=== PATIENT | female | born 1990 | race Two or more races ===

== ENCOUNTER 2020-07-20 15:36 | Outpatient (REF) | payer OTHER, SELFPAY | END 2020-07-20 15:37 | disposition home or self-care (01) | LOC: HO.LAB 15:36 | PROVIDERS: PCP Internal Medicine; Visit Provider Advanced Practice Midwife | DX: R30.0 Dysuria (principal); B00.9 Herpesviral infection, unspecified | CPT/HCPCS: 87086; 99212 ==

== ENCOUNTER → 2020-07-25 14:56 | Outpatient (BNVA) | payer OTHER, SELFPAY | PROVIDERS: PCP Internal Medicine; Visit Provider Advanced Practice Midwife | DX: Z30.46 Encounter for surveillance of implantable subdermal contraceptive (principal) | CPT/HCPCS: 11981; 11982; 11983 ==

== ENCOUNTER 2021-06-25 11:35 | Outpatient (REF) | payer OTHER, SELFPAY ==
[2021-06-25 15:58] LABS: CT PCR NOT DETECTED (Not Detect.); NG PCR NOT DETECTED (Not Detect.)
[2021-06-26 09:59] LABS: BV Int Neg Control Negative (Negative); BV Int Pos Control Positive (Positive)
== END 2021-06-25 11:36 | disposition home or self-care (01) ==
LOC: HO.LAB 11:35
PROVIDERS: PCP Internal Medicine; Visit Provider Advanced Practice Midwife
DX: Z11.3 Encounter for screening for infections with a predominantly sexual mode of transmission (principal); N89.8 Other specified noninflammatory disorders of vagina; R10.2 Pelvic and perineal pain
CPT/HCPCS: 87480; 87491; 87510; 87591; 87660

== ENCOUNTER 2021-11-20 09:06 | Outpatient (REF) | payer OTHER, SELFPAY ==
[2021-11-20 16:23] LABS: CT PCR NOT DETECTED (Not Detect.); NG PCR NOT DETECTED (Not Detect.)
[2021-11-21 13:11] LABS: BV Int Neg Control Negative (Negative); BV Int Pos Control Positive (Positive)
[2021-11-23 09:57] LABS: HPV mRNA E6/E7 rflx Not Detected (Not Detected)
== END 2021-11-20 09:07 | disposition home or self-care (01) ==
LOC: HO.LAB 09:06
PROVIDERS: PCP Nurse Practitioner Family; Visit Provider Advanced Practice Midwife
DX: Z01.411 Encounter for gynecological examination (general) (routine) with abnormal findings (principal); Z11.51 Encounter for screening for human papillomavirus (HPV); R10.2 Pelvic and perineal pain; N89.8 Other specified noninflammatory disorders of vagina; A60.00 Herpesviral infection of urogenital system, unspecified; Z20.2 Contact with and (suspected) exposure to infections with a predominantly sexual mode of transmission
CPT/HCPCS: 87480; 87491; 87510; 87591; 87624; 87660; 88142

== ENCOUNTER 2022-05-09 09:36 | Outpatient (REF) | payer OTHER, SELFPAY ==
[2022-05-09 15:32] LABS: CT PCR NOT DETECTED (Not Detect.); NG PCR NOT DETECTED (Not Detect.)
[2022-05-10 15:15] LABS: BV Int Neg Control Negative (Negative); BV Int Pos Control Positive (Positive)
== END 2022-05-09 09:37 | disposition home or self-care (01) ==
LOC: HO.LNP 09:36
PROVIDERS: Visit Provider Advanced Practice Midwife
DX: Z11.3 Encounter for screening for infections with a predominantly sexual mode of transmission (principal); N89.8 Other specified noninflammatory disorders of vagina; Z20.2 Contact with and (suspected) exposure to infections with a predominantly sexual mode of transmission
CPT/HCPCS: 87480; 87491; 87510; 87591; 87660; 99212

== ENCOUNTER 2023-04-16 08:15 | Outpatient (REF) | payer OTHER, SELFPAY | END 2023-04-16 08:16 | disposition home or self-care (01) | LOC: HO.LNP 08:15 | PROVIDERS: Visit Provider Advanced Practice Midwife | DX: N89.8 Other specified noninflammatory disorders of vagina (principal); R10.2 Pelvic and perineal pain; R35.0 Frequency of micturition; E28.2 Polycystic ovarian syndrome | CPT/HCPCS: 99212 ==

== ENCOUNTER 2023-04-16 08:15 | Outpatient (AMB) | payer OTHER, SELFPAY ==
--- NOTE | 2023-04-16 08:21 | A.OFFVIS_ITS ---
Intake Vital Signs 04/16/23 08:26 Height 5 ft 5 in Weight 268 lb 15.423 oz BMI 44.8 BP 118/76 Intake Visit Reasons: ? yeast/BV Intake Note: The patient agreed to use of a manager medical during this encounter. Scribed for HUAN Pavon by Mona Gonzalez, manager medical, on 04/16/2023 at 8:32 am EST. Emergency Department Clinician Required: No Information Interpreted: non-clinical & clinical Washtub Worker: Washtub Worker Present (Pia Donovan AMANDA) Accompanied by: Self / Same As Patient Allergies naproxen Allergy (Unknown, Verified 04/16/23 08:26) stomach upset Mayonnase Allergy (Unknown, Uncoded 04/16/23 08:26) Unknown Is last menstrual period known: No HPI HPI Comments History of Present Illness Details She reports green discharge, frequency of urination and low abdominal pain. Denies vaginal itching, odor, or pain while urinating. Currently sexually active with partner of 7 years. Reports hx of herpes-no lesions presently, PCOS, hypothyroid, and IBS; is seeing her PCP in May. Uses Nexplanon for BC and has occasional spotting. [facility] Medical History (Updated 04/16/23 @ 08:51 by Mona Gonzalez) Genital herpes Hypothyroidism IBS (irritable bowel syndrome) Morbid obesity Polycystic ovary syndrome Surgical History H/O colonoscopy No history of previous surgery Social History Alcohol intake: never Patient Tobacco Use Status: Never used Tobacco Sexual orientation: Straight/Heterosexual Gender identity: Female Physical Exam Vital Signs: Last Vital Signs BP 118/76 04/16/23 08:26 BMI result Body Mass Index 44.8 Const General: cooperative, healthy appearing, comfortable, no acute distress, well developed, alert and awake GI Inspection: Yes obesity Other: General: Yes bladder normal to palpation External Female Exam: normal external appearance and normal appearance of the urethra Speculum Exam - Vagina: normal appearance of the vagina, normal palpation and normal vaginal discharge Speculum Exam - Cervix: normal appearance of the cervix and normal palpation Bimanual exam- vagina & uterus: normal bimanual exam, normal palpation, bladder normal to palpation and normal palpation Bimanual Exam- Adnexa, other: normal adnexae and no masses Assessment & Plan Assessment & Plan (1) Vaginal discharge: Code(s): N89.8 - Other specified noninflammatory disorders of vagina Plan: Discussed: Hydrate well with water. Relase labs: PCOS BV testing and GC/CT panel done today. Await results and treat accordingly. All of her questions and concerns were addressed to the best of my ability and shared decision making. She is agreeable to plan of care. (2) Pelvic pain in female: Code(s): R10.2 - Pelvic and perineal pain Plan: Pelvic US ordered; follow up in person or tele visit for results. (3) Frequency of urination: Code(s): R35.0 - Frequency of micturition Plan: UA done today. (4) Polycystic ovary syndrome: Code(s): E28.2 - Polycystic ovarian syndrome Plan: Encouraged when she has labs work up with PCP, send results to office. Orders: Orders US pelvic and transvaginal Today R10.2 - Pelvic and perineal pain Bacterial Vaginosis Panel Today R10.2 - Pelvic and perineal pain CT NG by PCR Today R10.2 - Pelvic and perineal pain Coding Level of Care Code Est Pt Level 3 (15253) Diagnoses Vaginal discharge N89.8 Pelvic pain in female R10.2 Frequency of urination R35.0 Polycystic ovary syndrome E28.2
[2023-04-16 08:26] VITALS: BP 118/76; BMI 44.8
== END 2023-04-16 08:54 | disposition home or self-care (01) ==
LOC: HO.HWSW 08:15
PROVIDERS: Visit Provider Advanced Practice Midwife
DX: N89.8 Other specified noninflammatory disorders of vagina (principal); R10.2 Pelvic and perineal pain; R35.0 Frequency of micturition; E28.2 Polycystic ovarian syndrome
CPT/HCPCS: 99213

== ENCOUNTER 2023-04-16 08:37 | Outpatient (REF) | payer OTHER, SELFPAY ==
[2023-04-17 09:32] LABS: CT PCR NOT DETECTED (Not Detect.); NG PCR NOT DETECTED (Not Detect.)
[2023-04-17 12:06] LABS: BV Int Neg Control Negative (Negative); BV Int Pos Control Positive (Positive)
== END 2023-04-16 08:38 | disposition home or self-care (01) ==
LOC: HO.LAB 08:37
PROVIDERS: Visit Provider Advanced Practice Midwife
DX: R10.2 Pelvic and perineal pain (principal)
CPT/HCPCS: 0353U; 87480; 87510; 87660

== ENCOUNTER 2023-06-24 13:55 | Outpatient (REF) | payer OTHER, SELFPAY ==
--- NOTE | ~2023-06-24 | US_ITS ---
EXAMINATION: US PELVIS CLINICAL INFORMATION: Pelvic pain. COMPARISON: None available. TECHNIQUE: Ultrasound of the pelvis is performed using both transabdominal and transvaginal transducers along with Doppler. Transvaginal imaging is performed due to inadequate visualization transabdominally. FINDINGS: Uterus: The uterus is retroverted and measures 6.3 x 3.7 x 4.2 cm. The double wall endometrial thickness is 3 mm. The uterus is smooth in contour and has normal myometrial echogenicity. No visible fibroid. Adnexa: Both ovaries are visualized. There is normal color flow to the adnexa. There is no ovarian torsion. There is no pelvic ascites or fluid collection. Right ovary measures 3.3 x 1.9 x 2.2 cm. The right ovary appears normal. Left ovary measures 2.9 x 2.0 x 2.4 cm. Thinly septated cyst measures 1.9 cm. US/US pelvic and transvaginal IMPRESSION: New thinly septated left ovarian cyst measuring 1.9 cm compared to 11/01/2019. Best practice recommendation: Recommend surgical evaluation. Reference: Radiology 2010 Apr;256(3):943-54
== END 2023-06-24 13:56 | disposition home or self-care (01) ==
LOC: HO.US 13:55
PROVIDERS: Visit Provider Advanced Practice Midwife
DX: R10.2 Pelvic and perineal pain (principal)
CPT/HCPCS: 76830; 76856

== ENCOUNTER 2023-10-02 11:43 | Outpatient (AMB) | payer OTHER, SELFPAY ==
--- NOTE | 2023-10-02 11:43 | A.OFFVIS_ITS ---
Intake Intake Visit Reasons: Ultra sound follow up Lacquer Spray Booth Operator Required: No Information Interpreted: non-clinical & clinical Cotton Grower: Cotton Grower Present Allergies naproxen Allergy (Unknown, Verified 10/02/23 11:44) stomach upset Mayonnase Allergy (Unknown, Uncoded 10/02/23 11:44) Unknown Is last menstrual period known: Yes HPI HPI Comments History of Present Illness Details [facility] visit 11:54-12:04. Phone call due to Covid 19 Pandemic. I spent 10 minutes speaking with the patient on the phone plus an additional 5 minutes reviewing the chart and 5 minutes updating the medical record for a total of 20 minutes. Patient presents via phone to discuss: Ultrasound findings. History of PCOS and IBS. She reports she often has lower pelvic pain it is hard to tell if it is her GI system acting up. Currently Nexplanon user device was inserted 07/25/2020. She thought it was good for 5 years. She does have an intimate partner. She reports random bleeding. [facility] Medical History Hypothyroidism Polycystic ovary syndrome Morbid obesity Genital herpes IBS (irritable bowel syndrome) Surgical History H/O colonoscopy No history of previous surgery Social History Alcohol intake: never Patient Tobacco Use Status: Never used Tobacco Sexual orientation: Straight/Heterosexual Gender identity: Female Review of Systems Const All systems reviewed & are unremarkable except as noted in HPI and below Endo Reports no additional complaints Physical Exam Const General: cooperative, healthy appearing and no acute distress Psych Appearance: well kempt Attitude: cooperative Thought process: Normal thought process present Assessment & Plan Assessment & Plan (1) Encounter to discuss test results: Code(s): Z71.2 - Person consulting for explanation of examination or test findings (2) Ovarian cyst: Code(s): N83.209 - Unspecified ovarian cyst, unspecified side Qualifiers: Laterality: unspecified laterality Qualified Code(s): N83.209 - Unspecified ovarian cyst, unspecified side Plan Discussed: Counseled regarding findings of: Ovarian cyst, which is often benign, and most resolve on their own overtime. Plan to repeat in 8 weeks. Follow up in person for test results. If any increase in pelvic pain unilaterally left side to notify the office for sooner evaluation. Return to the office to sign consent for prior authorization to order a new Nexplanon. Advised to do a home test if positive notify the office as soon as possible. Advised to use condoms consistently until her Nexplanon new device has been placed in a 7 day backup method is utilized after insertion. All of her questions and concerns were addressed to the best of my ability and shared decision making. She is agreeable to the plan of care. This note is constructed using voice recognition software. While every effort has been made to ensure accuracy, groundman errors may have been included. Orders: Orders US pelvic and transvaginal 2 Months N83.209 - Unspecified ovarian cyst, unspecified side Telehealth Telehealth Location of provider rendering services: practice address Location of patient: address on file Patient Identification confirmed using: Name, : Yes Telehealth method: video Patient verbally consented to treatment: Yes Patient verbally consented to billing insurance company: Yes Patient informed of any privacy concerns related to visit: Yes Coding Level of Care Code Tele Est Pt Level 3 (30383) Diagnoses Encounter to discuss test results Z71.2 Cyst of ovary, unspecified laterality N83.209 Laterality: unspecified laterality
== END 2023-10-02 14:11 | disposition home or self-care (01) ==
LOC: HO.HWS 11:43
PROVIDERS: Visit Provider Advanced Practice Midwife
DX: Z71.2 Person consulting for explanation of examination or test findings (principal); N83.209 Unspecified ovarian cyst, unspecified side
CPT/HCPCS: 99213

== ENCOUNTER → 2023-10-02 11:43 | Outpatient (BNVA) | payer OTHER, SELFPAY | PROVIDERS: Visit Provider Advanced Practice Midwife ==

== ENCOUNTER 2023-12-01 11:06 | Outpatient (REF) | payer OTHER, SELFPAY ==
--- NOTE | ~2023-12-01 | US_ITS ---
EXAMINATION: US PELVIS COMPLETE CLINICAL INFORMATION: Additional Notes/Special Instructions follow up left ovarian cyst : COMPARISON: Pelvic ultrasound 06/24/2023 TECHNIQUE: Transabdominal and transvaginal imaging was performed. Technically limited exam. FINDINGS: The uterus is of normal size and echogenicity measuring 7.4 x 4.1 x 4.1 cm. Uterus is dynamic in position. A regular homogeneous endometrium is identified measuring 0.3 cm. Trace fluid in the endocervical canal. Nabothian cysts in the cervix. Both ovaries are of echogenicity. The right measures 2.7 x 2.0 x 1.9 cm for a volume of 5.4 mL. The left measures 10.7 x 2.6 x 2.7 cm for a volume of 13.6 mL with a 2.2 cm left ovarian cyst, suboptimally imaged and the previously seen septations were not identified with certainty unclear if they have truly resolved given the limited technique. Previously seen multiseptated left ovarian cyst measured 1.9 cm. There is trace simple physiologic volume pelvic free fluid. US/US pelvic and transvaginal IMPRESSION: 1. A 2.2 cm left ovarian cyst, suboptimally imaged and the previously seen septations were not identified with certainty though unclear if they have truly resolved given the limited technique, overall only minimally increased in size. Given the previously seen septations recommend continued gynecologic surgical management. 2. Trace fluid in the endocervical canal.
== END 2023-12-01 11:07 | disposition home or self-care (01) ==
LOC: HO.US 11:06
PROVIDERS: Visit Provider Advanced Practice Midwife
DX: N83.209 Unspecified ovarian cyst, unspecified side (principal)
CPT/HCPCS: 76830; 76856

== ENCOUNTER 2023-12-24 09:58 | Outpatient (AMB) | payer OTHER, SELFPAY ==
[2023-12-24 10:27] VITALS: BP 120/74; BMI 44.9
--- NOTE | 2023-12-24 10:27 | A.OFFVIS_ITS ---
Vital Signs 12/24/23 10:27 Height 5 ft 5 in Weight 270 lb BMI 44.9 BP 120/74 Intake Visit Reasons: Ultra sound follow up Manager Domestic Required: No [employer] Dynamics Consultant: [employer] Consultant Present Allergies naproxen Allergy (Unknown, Verified 12/24/23 10:28) stomach upset Mayonnase Allergy (Unknown, Uncoded 12/24/23 10:28) Unknown Is last menstrual period known: Yes Last menstrual period: 12/06/23 Post menopausal: No HPI Comments Details: Patient is here today for ultrasound results and a follow up on a complex ovarian cyst. She is due for Nexplanon exchange in February. [facility] Medical History Hypothyroidism Polycystic ovary syndrome Morbid obesity Genital herpes IBS (irritable bowel syndrome) Surgical History H/O colonoscopy No history of previous surgery Social History Alcohol intake: never Patient Tobacco Use Status: Never used Tobacco Sexual orientation: Straight/Heterosexual Gender identity: Female Female Reproductive History Menstrual Duration of menses: 3-5 days Date of last menstrual period: 12/06/23 control method: implanted Date of last pap smear: 11/21/21 (negative) Review of Systems Const All systems reviewed & are unremarkable except as noted in HPI and below Reports as per HPI Eyes Reports no additional complaints ENT Reports no additional complaints Card Reports no additional complaints Resp Reports no additional complaints GI Reports as per HPI and Reports no additional complaints Reports as per HPI Musc Reports no additional complaints Skin/Breast Reports as per HPI Neuro Reports no additional complaints Psych Reports no additional complaints Endo Reports no additional complaints Avel/Lymph Reports no additional complaints Aller/Immun Reports no additional complaints Physical Exam Vital Signs: Last Vital Signs BP 120/74 12/24/23 10:27 BMI result Body Mass Index 44.9 Const General: cooperative, healthy appearing, no acute distress, well developed and alert Orientation/consciousness: patient oriented x3 HEENT Head: Yes normal to inspection Eyes General: appearance normal, both eyes and all related structures Neck Neck: Yes normal visual inspection Thyroid: Thyroid normal Chest Chest palpation & inspection: normal inspection of the chest and other (no puckering, dimpling, peau de orange, retraction, discharge, masses) Breast/axilla inspection: normal inspection of the breasts Breast/axilla palpation: normal palpation of the breasts Resp Effort & Inspection: normal respiratory effort GI Inspection: Yes normal to inspection Palpation (GI): Soft to palpation Rectal Exam - Female: deferred General: Yes bladder normal to palpation External Female Exam: normal external appearance and normal appearance of the urethra Speculum Exam - Vagina: normal appearance of the vagina, normal palpation and normal vaginal discharge Speculum Exam - Cervix: normal appearance of the cervix and normal palpation Bimanual exam- vagina & uterus: normal bimanual exam, normal palpation, uterine size normal, bladder normal to palpation, normal palpation and non-tender Bimanual Exam- Adnexa, other: no masses Skin General skin exam: no rashes or lesions noted Rashes: no rashes Neuro General: patient oriented x3 Cognition (Neuro): normal cognition Extrem General: Yes normal to inspection Psych Appearance: well kempt Attitude: cooperative Thought process: Normal thought process present Results Reviewed Results Reviewed: [address] [address] Ultrasound Report Signed Patient: Robyn Wilcox MR#: [id number] : 1990 Acct:[id number] Age/Sex: 33 / F ADM Date: 12/01/23 Loc: . Attending Dr: Laura Quintanilla CNM Ordering Physician: Laura Quintanilla CNM Date of Service: 12/01/23 Procedure(s): US pelvic and transvaginal Accession Number(s): [id number] cc: Laura Quintanilla CNM~ EXAMINATION: US PELVIS COMPLETE CLINICAL INFORMATION: Additional Notes/Special Instructions follow up left ovarian cyst : COMPARISON: Pelvic ultrasound 06/24/2023 TECHNIQUE: Transabdominal and transvaginal imaging was performed. Technically limited exam. FINDINGS: The uterus is of normal size and echogenicity measuring 7.4 x 4.1 x 4.1 cm. Uterus is dynamic in position. A regular homogeneous endometrium is identified measuring 0.3 cm. Trace fluid in the endocervical canal. Nabothian cysts in the cervix. Both ovaries are of echogenicity. The right measures 2.7 x 2.0 x 1.9 cm for a volume of 5.4 mL. The left measures 10.7 x 2.6 x 2.7 cm for a volume of 13.6 mL with a 2.2 cm left ovarian cyst, suboptimally imaged and the previously seen septations were not identified with certainty unclear if they have truly resolved given the limited technique. Previously seen multiseptated left ovarian cyst measured 1.9 cm. There is trace simple physiologic volume pelvic free fluid. US/US pelvic and transvaginal IMPRESSION: 1. A 2.2 cm left ovarian cyst, suboptimally imaged and the previously seen septations were not identified with certainty though unclear if they have truly resolved given the limited technique, overall only minimally increased in size. Given the previously seen septations recommend continued gynecologic surgical management. 2. Trace fluid in the endocervical canal. Dictated By: Mirlande Monet MD Signed By: <Electronically signed by Mirlande Monet MD in OV> 12/04/23 1718 DD/ 1134 TD/TT: Statistical Methods Teacher: Assessment & Plan Assessment & Plan (1) Complex ovarian cyst: Code(s): N83.299 - Other ovarian cyst, unspecified side Category: Medical Plan Discussed: Ultrasound findings. Counseled regarding findings of: Complex ovarian cyst, which is often benign, and most resolve on their own overtime. Some develop into premalignant or malignant tumors. Further monitoring and evaluation is recommended with US, possible CT, or MRI study. If persists, or is indicated (Ca-125, Carbohydrate Antigen 19-9, & Carcinoembryonic Antigen) labs will be ordered and referral to [facility] or general gynecology for MD care if indicated for possible surgical consult. Follow up in person for test results. Prior authorization form signed today for [employer]. Call sooner if any pelvic pain or concerns for sooner evaluation. All of her questions and concerns were addressed to the best of my ability and shared decision making. She is agreeable to the plan of care. This note is constructed using voice recognition software. While every effort has been made to ensure accuracy, special trackwork blacksmith errors may have been included. Orders: Orders US pelvic and transvaginal 2 Months N83.299 - Other ovarian cyst, unspecified side Coding Level of Care Code Est Pt Level 3 (99995) Diagnoses Complex ovarian cyst N83.299
== END 2023-12-24 11:05 | disposition home or self-care (01) ==
PROVIDERS: Visit Provider Advanced Practice Midwife
DX: N83.299 Other ovarian cyst, unspecified side (principal)
CPT/HCPCS: 99213

== ENCOUNTER → 2023-12-24 09:58 | Outpatient (BNVA) | payer OTHER, SELFPAY | PROVIDERS: Visit Provider Advanced Practice Midwife | DX: N83.299 Other ovarian cyst, unspecified side (principal) | CPT/HCPCS: 99212 ==

== ENCOUNTER 2023-12-30 11:00 | Outpatient (RCR) | payer OTHER, SELFPAY | END 2024-02-11 10:09 | disposition home or self-care (01) | LOC: HO.PT 11:00 | PROVIDERS: Visit Provider Internal Medicine Rheumatology | DX: M17.0 Bilateral primary osteoarthritis of knee (principal) | CPT/HCPCS: 97110; 97161; 97162 ==

== ENCOUNTER 2024-04-26 11:14 | Outpatient (REF) | payer OTHER, SELFPAY ==
--- NOTE | ~2024-04-26 | US_ITS ---
EXAMINATION: US PELVIS CLINICAL INFORMATION: Complex ovarian cyst COMPARISON: Ultrasound from 12/01/2023 and 06/24/2023 TECHNIQUE: Ultrasound of the pelvis is performed using both transabdominal and transvaginal transducers along with Doppler. Transvaginal imaging is performed due to inadequate visualization transabdominally. FINDINGS: Uterus: The uterus is retroverted and measures 9.9 x 3.0 x 3.9 cm. Questionable arcuate uterus configuration. The double wall endometrial thickness is 3 mm. The uterus is smooth in contour and has normal myometrial echogenicity. No visible fibroid. Adnexa: Both ovaries are visualized. There is normal color flow to the adnexa. There is no ovarian torsion. There is no pelvic ascites or fluid collection. Right ovary measures 3.4 x 2.0 x 2.3 cm. Right ovary appears sonographically normal Left ovary measures 4.0 x 2.2 x 2.5 cm. Left ovarian cyst is difficult to visualize on the transvaginal imaging. The cyst measures approximately 2.5 x 1.8 x 2.5 cm on transabdominal imaging which is stable in size. Overall complexity is difficult to determine on the transabdominal images. Grossly no significant change compared to the prior exams. US/US pelvic and transvaginal IMPRESSION: 1. Left ovarian cyst is difficult to visualize on the transvaginal imaging. The cyst is stable in size compared to the prior exams. Overall complexity is difficult to determine on the transabdominal images. Further evaluation with MRI may be useful for better definition 2. Uterus and right ovary are normal. Electronically signed by: Medardo Grove MD 04/28/2024 10:38 AM EDT
== END 2024-04-26 11:15 | disposition home or self-care (01) ==
LOC: HO.US 11:14
PROVIDERS: Visit Provider Advanced Practice Midwife
DX: N83.299 Other ovarian cyst, unspecified side (principal)
CPT/HCPCS: 76830; 76856

== ENCOUNTER 2024-05-24 08:46 | Outpatient (AMB) | payer OTHER, SELFPAY ==
--- NOTE | 2024-05-24 08:46 | A.OFFVIS_ITS ---
Intake Visit Reasons: US follow up ok per [facility] Intake Note: cell #[phone] Licensing And Registration Director: Licensing And Registration Director Present Allergies naproxen Allergy (Unknown, Verified 05/24/24 08:46) stomach upset Mayonnase Allergy (Unknown, Uncoded 12/24/23 10:28) Unknown Is last menstrual period known: Yes Last menstrual period: 05/21/24 HPI Comments Details: [place] visit -09:02-09:10. I spent 8 minutes speaking with the patient on the phone plus an additional 5 minutes reviewing the chart and 5 minutes updating the medical record for a total of 18minutes. Failed video audible, visit converted to land line. Patient presents via phone to discuss: Ultrasound findings, history of complex ovarian cyst. Patient admits to occasional left-sided pelvic pain. Has also questions about replacing her Nexplanon and is waiting for device to be available. [facility] Medical History Hypothyroidism Polycystic ovary syndrome Morbid obesity Genital herpes IBS (irritable bowel syndrome) Surgical History H/O colonoscopy No history of previous surgery Social History Alcohol intake: never Patient Tobacco Use Status: Never used Tobacco Sexual orientation: Straight/Heterosexual Gender identity: Female Female Reproductive History Menstrual Date of last menstrual period: 05/21/24 Review of Systems Const All systems reviewed & are unremarkable except as noted in HPI and below Endo Reports no additional complaints Physical Exam Const General: cooperative, healthy appearing and no acute distress Psych Appearance: well kempt Attitude: cooperative Thought process: Normal thought process present Telehealth Telehealth Telehealth Platform: [employer] Location of provider rendering services: practice address Location of patient: address on file Patient Identification confirmed using: Name, : Yes Telehealth method: video Patient verbally consented to treatment: Yes Patient verbally consented to billing insurance company: Yes Patient informed of any privacy concerns related to visit: Yes Results Reviewed Results Reviewed: [address] [address] Ultrasound Report Signed Patient: Robyn Wilcox MR#: [id number] : 1990 Acct:[id number] Age/Sex: 33 / F ADM Date: 04/26/24 Loc: HO.US Attending Dr: Laura Quintanilla CNM Ordering Physician: Laura Quintanilla CNM Date of Service: 04/26/24 Procedure(s): US pelvic and transvaginal Accession Number(s): [id number] cc: Laura Quintanilla CNM~ EXAMINATION: US PELVIS CLINICAL INFORMATION: Complex ovarian cyst COMPARISON: Ultrasound from 12/01/2023 and 06/24/2023 TECHNIQUE: Ultrasound of the pelvis is performed using both transabdominal and transvaginal transducers along with Doppler. Transvaginal imaging is performed due to inadequate visualization transabdominally. FINDINGS: Uterus: The uterus is retroverted and measures 9.9 x 3.0 x 3.9 cm. Questionable arcuate uterus configuration. The double wall endometrial thickness is 3 mm. The uterus is smooth in contour and has normal myometrial echogenicity. No visible fibroid. Adnexa: Both ovaries are visualized. There is normal color flow to the adnexa. There is no ovarian torsion. There is no pelvic ascites or fluid collection. Right ovary measures 3.4 x 2.0 x 2.3 cm. Right ovary appears sonographically normal Left ovary measures 4.0 x 2.2 x 2.5 cm. Left ovarian cyst is difficult to visualize on the transvaginal imaging. The cyst measures approximately 2.5 x 1.8 x 2.5 cm on transabdominal imaging which is stable in size. Overall complexity is difficult to determine on the transabdominal images. Grossly no significant change compared to the prior exams. US/US pelvic and transvaginal IMPRESSION: 1. Left ovarian cyst is difficult to visualize on the transvaginal imaging. The cyst is stable in size compared to the prior exams. Overall complexity is difficult to determine on the transabdominal images. Further evaluation with MRI may be useful for better definition 2. Uterus and right ovary are normal. Electronically signed by: Medardo Grove MD 04/28/2024 10:38 AM EDT Dictated By: Medardo Grove MD Signed By: <Electronically signed by Medardo Grove MD in OV> 04/28/24 1038 DD/ 1126 TD/TT: 04/26/24 1155 Curtain Hemmer Automatic: Assessment & Plan Assessment & Plan (1) Complex ovarian cyst: Code(s): N83.299 - Other ovarian cyst, unspecified side Category: Medical (2) Encounter to discuss test results: Code(s): Z71.2 - Person consulting for explanation of examination or test findings Plan Discussed: Ultrasound findings-limitedORDER #: [id number] US/US pelvic and transvaginal IMPRESSION: 1. Left ovarian cyst is difficult to visualize on the transvaginal imaging. The cyst is stable in size compared to the prior exams. Overall complexity is difficult to determine on the transabdominal images. Further evaluation with MRI may be useful for better definition 2. Uterus and right ovary are normal. Electronically signed by: Medardo Grove MD 04/28/2024 10:38 AM EDT She denies any contraindications to an MRI. Advised to call if there is any increase in pelvic pain. If severe pain to report to the emergency room. Use of a heating pad or [id number] ibuprofen or Tylenol with food reviewed. Plan MRI and follow up office visit in person. Staff to confirm status of Nexplanon device and arrival to pharmacy. Advised to use backup method until devices replaced. Obtain a home test now. All of her questions and concerns were addressed to the best of my ability and shared decision making. She is agreeable to the plan of care. This note is constructed using voice recognition software. While every effort has been made to ensure accuracy, banquet lead errors may have been included. Coding Level of Care Code Tele Est Pt Level 3 (10106) Diagnoses Complex ovarian cyst N83.299 Encounter to discuss test results Z71.2
== END 2024-05-24 09:45 | disposition home or self-care (01) ==
LOC: HO.HWS 08:46
PROVIDERS: Visit Provider Advanced Practice Midwife
DX: N83.299 Other ovarian cyst, unspecified side (principal); Z71.2 Person consulting for explanation of examination or test findings
CPT/HCPCS: 99213

== ENCOUNTER → 2024-05-24 08:46 | Outpatient (BNVA) | payer OTHER, SELFPAY | PROVIDERS: Visit Provider Advanced Practice Midwife ==

== ENCOUNTER → 2024-09-30 14:59 | Outpatient (BNV) | payer OTHER, SELFPAY | PROVIDERS: Visit Provider Radiology Diagnostic Radiology | DX: N83.202 Unspecified ovarian cyst, left side (principal) | CPT/HCPCS: 72197 ==

== ENCOUNTER 2024-09-30 15:01 | Outpatient (REF) | payer OTHER, SELFPAY ==
--- NOTE | ~2024-09-30 | MR_ITS ---
EXAMINATION: MR PELVIS WITHOUT AND WITH CONTRAST CLINICAL INFORMATION: Ovarian cyst, unspecified site. COMPARISON: Correlated to pelvic ultrasound dated April 26, 2024 suggesting a left ovarian cyst. TECHNIQUE: Multiplanar, multisequence MRI pelvis without and following gadolinium based IV contrast. Total of 10 cc given without reported immediate complications. FINDINGS: Uterus measures 8 x 4 x 4 cm. No focal enhancing lesion. Junctional zone measures 1 mm. Cervix demonstrates no enhancing lesion. Right ovary: 4 x 3 x 3 cm. Scattered follicles. No focal enhancing lesion. Left ovary: 4 x 3.3 cm. There is a 2.7 cm thin capsulated nonenhancing fluid signal characteristic lesion. No free fluid in the cul-de-sac. No gross lymphadenopathy in the pelvis. No bone marrow signal abnormality or enhancing lesions in the included axial skeleton and bony pelvis. MR/MR pelvis wo/w con IMPRESSION: 2.7 cm simple cyst, left ovary. Electronically signed by: Rubin Taylor MD 10/04/2024 09:37 AM SILVIO
--- OUTSIDE RECORDS SUMMARY | 2024-09-30 15:04 | XMS_ITS | Continuity of Care Document ---
Author Organization [facility] Address [address] [place] [address]- Care Team Providers Care Medical Services Coordinator Name Role Phone Thor Pablo MD, Dari Primary Care Physician [place] [facility] [place] 08/08/24 - 09/07/[address] [address]- Encounter Type: Triage Allergies, Adverse Reactions, Alerts Substance Criticality Severity Reaction Reaction Severity Status amoxicillin Active Naprosyn Active Medications escitalopram 20 mg oral tablet 1 tablet = 20 mg, By Mouth, Daily, # 90 tablet, 0 Refills, Maintenance, 05/18/24 3:33:00 PM EDT, Tablet, Partial fill upon patient request if the prescription is for a schedule II opioid drug. Start Date: 05/18/24 Status: Ordered Quantity: 90.0 Unit: tablet Repeat number: 1 Nexplanon 68 mg subcutaneous implant 1 each = 68 mg, Subcutaneous Infusion, Once, 0 Refills, Maintenance, 05/23/24 2:23:00 PM EDT, Partial fill upon patient request if the prescription is for a schedule II opioid drug. Start Date: 05/23/24 Status: Ordered Repeat number: 1 omeprazole 20 mg oral enteric coated capsule See Instructions, TAKE 1 CAPSULE BY MOUTH 1/2 TO 1 HOUR BEFORE BREAKFAST ON EMPTY STOMACH, # 90 capsule, 0 Refills, [id number], 162, cm, 05/08/21 15:57:00 EDT, Height Start Date: 01/30/22 Status: Ordered Quantity: 90.0 Unit: capsule Repeat number: 1 Reguloid 400 mg oral capsule 2 capsule, By Mouth, 2 times a day, PRN NEEDED FOR CONSTIPATION, # 120 capsule, 11 Refills, Maintenance, 08/08/24 2:10:00 PM EST, [id number], 164, cm, 05/18/24 15:02:00 EDT, Height Start Date: 08/08/24 Status: Ordered Quantity: 120.0 Unit: capsule Repeat number: 1 Ventolin HFA 108 mcg/inh inhalation aerosol with adapter 2 puffs, Inhalation, Every 4 hours, PRN for wheezing, # 18 Gm, 0 Refills, Maintenance, 05/18/24 3:33:00 PM EDT, Aerosol, Partial fill upon patient request if the prescription is for a schedule II opioid drug. Start Date: 05/18/24 Status: Ordered Quantity: 18.0 Unit: g Repeat number: 1 Problem List Condition Confirmation Course Effective Dates Status Health St atus Informant Chronic abdominal pain Confirmed Active GERD (gastroesophageal reflux disease) Confirmed Active Genital herpes Confirmed Active H/O Lulú-Schlatter disease Confirmed Active Healthy adult Confirmed Active Knee pain Confirmed Active Morbid obesity with BMI of 40.0-44.9, adult Confirmed Active Serrated polyp of colon Confirmed 04/17/17 Active Severe obesity Confirmed Active Social anxiety disorder Confirmed Active Social History Social History Type Response Smoking Status Former smoker entered on: 06/29/17 Sex Sex Representation Female (finding) Patient Care team information Care Team Personnel Name: Dari Miller MD Position: [facility] Resident Member Role: PCP Address: [address] [place] [address] Telecom: Name: Brandi Ochoa RN Position: [facility] ED RN W/OE and Tasks Member Role: Primary Care Nurse Name: Joseluis ROLLE, Yamilet Emery Position: [facility] ED RN W/OE and Tasks Member Role: Primary Care Nurse Name: Tony ROLLE, Vic Sanchez Position: [facility] RN Member Role: Primary Care Nurse Name: Damaris Segura RN Position: [facility] [place] Nurse Member Role: Primary Care Nurse Care Team Related Persons Name: BARBARA DEL ROSARIO Name: MICHOACANO DEL ROSARIO Insurance Providers Guarantor name: AYAKA LION [employer] Plan Information #: 1 Payer: [facility] Member Number: NA Policy Number: NA Group Number: NA
--- OUTSIDE RECORDS SUMMARY | 2024-09-30 15:04 | XMS_ITS | Continuity of Care Document ---
Author Organization [facility] Address [address] [place] [address]- Care Team Providers Care Furnace Installer Name Role Phone Thor Pablo MD, Dari Primary Care Physician ( [phone] [place] [facility] [place] 08/02/24 - 09/01/[address] [address]- Encounter Type: Triage Allergies, Adverse Reactions, Alerts [...] EMPTY STOMACH, # 90 capsule, 0 Refills, [facility] [id number], 162, cm, 05/08/21 15:57:00 EDT, Height Start Date: 01/30/22 Status: Ordered Quantity: 90.0 Unit: capsule Repeat number: 1 Reguloid 400 mg oral capsule 2 capsule, By Mouth, 2 times a day, PRN NEEDED FOR CONSTIPATION, # 120 capsule, 11 Refills, Maintenance, 08/08/24 2:10:00 PM EST, [id number], 164, cm, 05/18/24 15:02:00 EDT, Height Start [...] Team Personnel Name: Dari Miller MD Position: [facility] Resident Member Role: PCP Address: [address] [place] [address] Telecom: Name: Gabriela ROLLE, Brandi Alegria Position: [facility] ED RN W/OE and Tasks Member Role: Primary Care Nurse Name: Joseluis ROLLE, Yamilet Emery Position: [facility] ED RN W/OE and Tasks Member Role: Primary Care Nurse Name: Tony ROLLE, Vic Sanchez Position: [facility] RN Member Role: Primary Care Nurse Name: Damaris Segura RN Position: [facility] [place] Nurse Member Role: Primary Care Nurse Care Team Related Persons Name: BARBARA DEL ROSARIO Name: MICHOACANO DEL ROSARIO Insurance Providers Guarantor name: AYAKA LION [employer] Plan Information #: 1 Payer: [facility] Member Number: NA Policy Number: NA Group Number: NA
--- OUTSIDE RECORDS SUMMARY | 2024-09-30 15:04 | XMS_ITS | Encounter Summary ---
Author Organization [facility] Address [address] [place] [address] Care Team Providers Care Application Support Analyst Name Role Phone Unavailable Primary Care Provider Unavailabl e Encounter Details Date Type Department Care Team (Late st Contact Info) Description 02/03/2022 Dental Interim Note [facility] Dental [address] [place] [address] Ryanne Weiss DDS [address] [place] [address] Social History Tobacco Use Types Packs/Day Years Used Date Smoking Tobacco: Never Assessed Social Connections Answer Date Recorded Social Connections and Isolation 0 02/03/2022 Financial Resource Strain Answer Date R ecorded Financial Resource Strain 0 2021 Stress Answer Date Recorded Stress 0 02/03/2022 Physical Activity Answer Date Recorded Physical Activity 0 02/03/2022 Food Insecurity Answer Date Recorded Food 0 02/03/2022 Transportation Needs Answer Date Record ed Transportation 0 02/03/2022 Housing Stability Answer Date Recorded Housing 0 02/03/2022 Safety and Environment Answer Date Pasha rded Safety 0 02/03/2022 Utilities Answer Date Recorded Utilities 0 02/03/2022 Employment Answer Date Recorded Employment 0 02/03/2022 Comments Unknown Sex and Gender Information Value Date Recorded Sex Assigned at Not on file Legal Sex Female 9:01 AM PDT Gender Identity Not on file Sexual Orientation Not on file documented as of this encounter Plan of Treatment Upcoming Encounters Date Type Department Care Team (Late st Contact Info) Description 12/02/2024 11:00 AM EDT Office Visit [facility] Dental [address] [place] [address] Leeann Capps [address] [place] [address] documented as of this encounter Procedures Procedure Name Priority Date/Time Associated Diagnosis Comments 13 ROOT CANAL - WISDOM (NO BILLABLE) Routine 02/03/2022 12:00 AM EDT 4 MO COMPOSITE - WISDOM (NON BILLABLE) Routine 02/03/2022 12:00 AM EDT 14 O AMALGAM - WISDOM (NON BILLABLE) Routine 02/03/2022 12:00 AM EDT 12 MOD AMALGAM - WISDOM (NON BILLABLE) Routine 02/03/2022 12:00 AM EDT 5 DO AMALGAM - WISDOM (NON BILLABLE) Routine 02/03/2022 12:00 AM EDT 4 DO AMALGAM - WISDOM (NON BILLABLE) Routine 02/03/2022 12:00 AM EDT 3 MOL AMALGAM - WISDOM (NON BILLABLE) Routine 02/03/2022 12:00 AM EDT 2 O AMALGAM - WISDOM (NON BILLABLE) Routine 02/03/2022 12:00 AM EDT documented in this encounter Visit Diagnoses Not on filedocumented in this encounter
--- OUTSIDE RECORDS SUMMARY | 2024-09-30 15:04 | XMS_ITS | Continuity of Care Document ---
Author Organization [facility] ter Address [address] [place] [address]- Care Team Providers Care Director Compliance Name Role Phone Thor Pablo MD, Dari Primary Care Physician [place] [facility] [place] - 09/29/[address] [address] Attending Physician: Not on Staff, Attending MD Admitting Physician: Not on Staff, Admitting MD Referring Physician: Dari Miller MD Encounter Type: Pre-Outpt Allergies, Adverse Reactions, Alerts Substance Criticality Severity Reaction Reaction Severity Status amoxicillin Active Naprosyn Active Medications cetirizine 10 mg oral tablet 1 tablet = 10 mg, By Mouth, Daily, # 30 tablet, 0 Refills, Maintenance, 09/08/24 3:29:00 PM EST, Tablet, [id number], Partial fill upon patient request if the prescription is for a schedule II opioid drug., 164, cm, 05/18/24 15:02:00 EDT, Height Start Date: 09/08/24 Status: Ordered Quantity: 30.0 Unit: tablet Repeat number: 1 escitalopram 20 mg oral tablet 1 tablet [...] EMPTY STOMACH, # 90 capsule, 0 Refills, [facility], 162, cm, 05/08/21 15:57:00 EDT, Height Start Date: 01/30/22 Status: Ordered Quantity: 90.0 Unit: capsule Repeat number: 1 Reguloid 400 mg oral capsule 2 capsule, By Mouth, 2 times a day, PRN NEEDED FOR CONSTIPATION, # 120 capsule, 11 Refills, Maintenance, 08/08/24 2:10:00 PM EST, [facility], 164, cm, 05/18/24 15:02:00 EDT, Height Start [...] Team Personnel Name: Dari Miller MD Position: [facility] Resident Member Role: PCP Address: [address] [place] [address]- Telecom: Name: Brandi Ochoa RN Position: [facility] ED RN W/OE and Tasks Member Role: Primary Care Nurse Name: Joselius RN, Yamilet Emery Position: [facility] ED RN W/OE and Tasks Member Role: Primary Care Nurse Name: Tony RN, Vic Sanchez Position: [facility] ED RN W/OE and Tasks Member Role: Primary Care Nurse Name: Imelda ROLLE, Damaris Ambrocio Position: [facility] SN RN Member Role: Primary Care Nurse Care Team Related Persons Name: BARBARA DEL ROSARIO Name: MICHOACANO DEL ROSARIO Insurance Providers Guarantor name: AYAKA LION Health Plan Information #: 1 Payer: [facility] Member Number: [id number] Policy Number: NA Group Number: [id number] Health Plan Information #: 2 Payer: [facility] Member Number: [id number] Policy Number: NA Group Number: NA
--- OUTSIDE RECORDS SUMMARY | 2024-09-30 15:04 | XMS_ITS | Continuity of Care Document ---
Author Organization [facility] Address [address] [place] [address]- Care Team Providers Care Ict Analyst Name Role Phone Thor Pablo MD, Dari Primary Care Physician [place] [facility] [place] 08/30/24 - 09/29/[address] [address]- Encounter Type: Triage Allergies, Adverse Reactions, Alerts Substance Criticality Severity Reaction Reaction Severity Status amoxicillin Active Naprosyn Active Medications cetirizine 10 mg oral tablet 1 tablet = 10 mg, By Mouth, Daily, # 30 tablet, 0 Refills, Maintenance, 09/08/24 3:29:00 PM EST, Tablet, [id number], Partial fill upon patient request if the [...] # 90 capsule, 0 Refills, [facility], 162, cm, 05/08/21 15:57:00 EDT, Height Start Date: 01/30/22 Status: Ordered Quantity: 90.0 Unit: capsule Repeat number: 1 Reguloid 400 mg oral capsule 2 capsule, By Mouth, 2 times a day, PRN NEEDED FOR CONSTIPATION, # 120 capsule, 11 Refills, Maintenance, 08/08/24 2:10:00 PM EST, [facility], 164, cm, 05/18/24 15:02:00 EDT, Height Start [...] Team Personnel Name: Dari Miller MD Position: [facility] Resident Member Role: PCP Address: [address] [place] [address] Telecom: Name: Brandi Ochoa RN Position: [facility] ED RN W/OE and Tasks Member Role: Primary Care Nurse Name: Joseluis ROLLEYamilet Position: [facility] ED RN W/OE and Tasks Member Role: Primary Care Nurse Name: Tony RN, iVc Sanchze Position: [facility] ED RN W/OE and Tasks Member Role: Primary Care Nurse Name: Imelda ROLLE, Damaris Ambrocio Position: [facility] SN RN Member Role: Primary Care Nurse Care Team Related Persons Name: BARBARA DEL ROSARIO Name: MICHOACANO DEL ROSARIO Insurance Providers Guarantor name: [facility] Plan Information #: 1 Payer: [facility] Member Number: NA Policy Number: NA Group Number: NA
--- OUTSIDE RECORDS SUMMARY | 2024-09-30 15:04 | XMS_ITS | Clinical Summary ---
Author Organization [facility] Address [address] [place] [address] Care Team Providers Care Digital Account Executive Name Role Phone Unavailable Primary Care Provider Unavailabl e Source Comments PLEASE NOTE, if this patient is a minor, it may be UNLAWFUL to discuss sensitive information that is contained in these records (such as FAMILY PLANNING, MENTAL HEALTH or SUBSTANCE ABUSE) with the minor patient's parent or other person without the patient's specific authorization.[facility] Medications ibuprofen (ADVIL,MOTRIN) 600 mg tabletIndication s:Toothache Take 1 Tab by mouth 3 (three) times daily as needed for pain 30 Tab 01/27/2019 Active Active Problems No known active problems Social History Tobacco Use Types Packs/Day Years Used Date Smoking Tobacco: Never Assessed Social Connections Answer Date Recorded Connectedness 0 04/28/2024 Financial Resource Strain Answer Date R ecorded Financial Resource Strain 0 2021 Stress Answer Date Recorded Stress 0 02/03/2022 Physical Activity Answer Date Recorded Physical Activity 0 02/03/2022 Food Insecurity Answer Date Recorded Food 0 05/12/2024 Transportation Needs Answer Date Record ed Transportation 0 02/03/2022 Housing Stability Answer Date Recorded Housing 0 02/03/2022 Safety and Environment Answer Date Pasha rded Safety 0 02/03/2022 Utilities Answer Date Recorded Utilities 0 02/03/2022 Employment Answer Date Recorded Stress 0 04/28/2024 Comments Unknown Sex and Gender Information Value Date Recorded Sex Assigned at Not on file Legal Sex Female 9:01 AM PDT Gender Identity Not on file Sexual Orientation Not on file Last Filed Vital Signs Vital Sign Reading Time Taken Comments Blood Pressure 131/80 05/26/2024 12:59 PM EDT Pulse 98 05/26/2024 12:59 PM EDT Temperature - - Respiratory Rate - - Oxygen Saturation - - Inhaled Oxygen Concentration - - Weight - - Height - - Body Mass Index - - Plan of Treatment Upcoming Encounters Date Type Department Care Team (Late st Contact Info) Description 12/02/2024 11:00 AM EDT Office Visit [address] [address] Leeann Capps [address] [place] [address] Health Maintenance Due Date Last Done Comments Dental FMX/Pano 1989 Diabetes Screening 1989 HPV Screening 1989 Hepatitis C Screening 1989 Pap + HPV 1989 Tobacco Screening 1989 HIV Screening 2004 Relationship Safety Screening/Counseling 2004 Imm-DTaP/Tdap/Td (1 - Tdap) 2008 Imm-Hepatitis B (1 of 3 - 19+ 3-dose series) 8 Cervical Cancer Screening 2010 Pap Smear 2010 [id number]-13 ( season) 2024 Imm-Influenza (#1) 2024 Alcohol and Drug Screen 08/17/2024 Depression Annual Screen 08/17/2024 Dental BW 12/12/2024 12/11/2023 Dental Examination 12/12/2024 12/11/2023 Dental Perio Charting 12/12/2024 12/11/2023 Dental Prophy 12/12/2024 12/11/2023 Hypertension Screening (#1) 05/26/2025 Cervical Ablation/Cold-Knife Conization Discontinued Cervical Cryotherapy Discontinued Colposcopy Discontinued Endometrial Biopsy Discontinued Excision/Leep Discontinued HPV Genotyping Discontinued Vaginal Pap Discontinued Vulvoscopy Discontinued Procedures Procedure Name Priority Date/Time Associated Diagnosis Comments COMP PERIODONTAL EVALUATION - NEW/EST PATIENT Routine 12/11/2023 1:40 PM EDT Defective dental islam BITEWINGS - FOUR RADIOGRAPHIC IMAGES Routine 12/11/2023 1:40 PM EDT Defective dental islam PROPHYLAXIS - ADULT Routine 12/11/2023 1 :40 PM EDT Defective dental islam PERIODIC ORAL EVALUATION ESTABLISHED PATIENT Routine 12/11/2023 1:40 PM EDT Defective dental islam from Last 3 Months or Most Recently Relevant to Health Maintenance Insurance [facility]
--- OUTSIDE RECORDS SUMMARY | 2024-09-30 15:04 | XMS_ITS | Continuity of Care Document ---
Author Organization [facility] Address [address] [place] [address]- Care Team Providers Care Aml Analyst Name Role Phone Thor Pablo MD, Dari Primary Care Physician Encounter [facility] [place] 08/02/24 - 09/01/[address] [address]- Encounter Type: Triage Allergies, Adverse Reactions, Alerts [...] EMPTY STOMACH, # 90 capsule, 0 Refills, [facility] 15162, 162, cm, 05/08/21 15:57:00 EDT, Height Start Date: 01/30/22 Status: Ordered Quantity: 90.0 Unit: capsule Repeat number: 1 Reguloid 400 mg oral capsule 2 capsule, By Mouth, 2 times a day, PRN NEEDED FOR CONSTIPATION, # 120 capsule, 11 Refills, Maintenance, 08/08/24 2:10:00 PM EST, [id number], 164, cm, 05/18/24 15:02:00 EDT, Height Start [...] Team Personnel Name: Dari Miller MD Position: [facility] Resident Member Role: PCP Address: [address] [place] [address] Telecom: Name: Gabriela ROLLE, Brandi Alegria Position: [facility] ED RN W/OE and Tasks Member Role: Primary Care Nurse Name: Joseluis ROLLE, Yamilet Emery Position: [facility] ED RN W/OE and Tasks Member Role: Primary Care Nurse Name: Tony ROLLE, Vic Sanchez Position: [facility] RN Member Role: Primary Care Nurse Name: Damaris Segura RN Position: [facility] [place] Nurse Member Role: Primary Care Nurse Care Team Related Persons Name: BARBARA DEL ROSARIO Name: MICHOACANO DEL ROSARIO Insurance Providers Guarantor name: AYAKA LION [employer] Plan Information #: 1 Payer: [facility] Member Number: NA Policy Number: NA Group Number: NA
[2024-09-30] MEDS: gadobutroL 10 ML VIAL IVPUSH (16:20)
== END 2024-09-30 15:02 | disposition home or self-care (01) ==
LOC: HO.MRI 15:01
PROVIDERS: Visit Provider Advanced Practice Midwife
DX: N83.299 Other ovarian cyst, unspecified side (principal)
CPT/HCPCS: 72197; A9585

== ENCOUNTER 2024-11-10 14:30 | Outpatient (AMB) | payer OTHER, SELFPAY ==
--- NOTE | 2024-11-10 14:32 | A.OFFVIS_ITS ---
Vital Signs 11/10/24 14:38 Height 5 ft 5 in Weight 296 lb BMI 49.3 BP 112/78 Intake Visit Reasons: MRI F/U Allergies naproxen Allergy (Unknown, Verified 11/10/24 14:33) stomach upset Mayonnase Allergy (Unknown, Uncoded 12/24/23 10:28) Unknown Is last menstrual period known: Yes Last menstrual period: 11/03/24 HPI Comments Details: Patient is here today for a follow up MRI due to history of complex ovarian cyst. She reports intermittent discomfort on her left side. Last unprotected intimacy a month ago. She would like to have her Nexplanon exchanged completed today as it is overdue from last summer. [facility] Medical History (Updated 11/10/24 @ 15:40 by Laura Quintanilla CNM) History of sepsis Ovarian cyst Nexplanon in place Hypothyroidism Polycystic ovary syndrome Morbid obesity Genital herpes IBS (irritable bowel syndrome) Surgical History H/O colonoscopy No history of previous surgery Social History Alcohol intake: never Patient Tobacco Use Status: Never used Tobacco Sexual orientation: Straight/Heterosexual Gender identity: Female Female Reproductive History Menstrual Date of last menstrual period: 11/03/24 control method: implanted (Nexplanon) Physical Exam Vital Signs: Last Vital Signs BP 112/78 11/10/24 14:38 BMI result Body Mass Index 49.3 Extrem Other: Implant palpable left upper inner arm Office Procedures Contraception Insert/Removal Details Details: Nexplanon Removal and Reinsertion Procedure: She was counseled regarding the risks including and benefits for the Nexplanon device. She denies any risks to . Anticipatory guidance for the insertion procedure was reviewed. The urine test is negative. Risk of the procedure including pain, infection, bleeding, injury to the nerves, blood, vessels and surrounding tissue, migration of the device, unscheduled unpredictable bleeding patterns, weight gain, skin changes including acne. The consent form was signed and the patient request that the Nexplanon device be placed today. Procedure: The patient was placed in a supine position with her non dominant left hand resting under her head. The previous insertion site was located: 8-10cm from the medial epicondyle notch of the humerus, posterior to the sulcus, between the triceps and biceps muscle. The area of the previous implant was identified and the distal tip located. This area was cleansed with an alcohol prep and 1 ml of 1% Lidocaine on a 25 gauge needle and syringe was utilized for adequate anesthesia to the insertion site. After ascertaining adequate anesthesia, the area was prepped with Betadine solution. The skin over the distal tip was incised with a #11 blade scalpel and the capsule was located and entered freeing the implant from the canal. The implant was removed with a gentle tug using a mosquito clamp and removed intact. The Nexplanon device was removed from the manufacturers package and the implant was noted in the trocar canal. The trocar was inserted at a 30 degree angle and then lowered parallel to the skin for insertion into the subcutaneous space with counter traction. Direct pressure was applied to the insertion site for hemostasis, minimal bleeding was observed. Steri strips, Tegaderm covering, gauze pads, and Carolina wrap dressing were secured with paper tape. Nexplanon Post-insertion Care Instructions: You may experience some mild tenderness, swelling, and bruising from the area. If no allergies or contraindications, you may use a mild over the counter analgesic like Tylenol or Advil (follow the manufacturers recommendations on dosing and frequency of use). Call the office if any symptoms and including: fever (over 100.4), flu like symptoms, signs of infection-redness, pus drainage, pain (beyond usual healing), for any medical changes, suspected , heavy or prolonged vaginal bleeding Seek emergent care in the Emergency department for: sudden visual loss, shortness of breath, severe headache that is not consistent with your usual headaches, heaviness, sharp or severe chest pains, coughing up of blood, persistent pain in one of your extremities, weakness or numbness in an arm, leg or face, tongue or pharynx, trouble swallowing, difficult speaking, hives and trouble breathing, yellowing of skin, whites or eyes, especially with tiredness, loss of appetite, dark colored urine, light colored bowel movements, swelling or tenderness of the abdomen. The Nexplanon does not protect you from STI's, use of condoms is advised. Use a back up method of contraception for 7 days if the device is not placed within the first 5 days of your menses cycle to prevent an unintended . Keep the pressure dressing on and clean and dry for 24 hours, then remove it. You may take the steri strips and Tegaderm off in 5-7days, or sooner if peeling off on its own. Schedule a office post insertion check up in 4-6 weeks. The patient tolerated the procedure well and left the office in good condition. This note is constructed using voice recognition software. ?While every effort has been made to ensure accuracy, field human resources manager errors may have been included. ? 62936 - Insertion and Removal Office Meds Nexplanon 68 mg subdermal implant Performing Provider: Laura Quintanilla CNM Performing Location: [facility] Administered by: AMANDA Kenny on 11/10/24 16:01 Dose Route Admin Location Dispensed Lot Number Expiration Date [facility] [place] Mutuel Clerk 1 implant subdermal 1 implant [id number] 05/16/26 [id number] 3D Forms Results AMB Test Urine AMB Test Urine Negative Last Edit by AMANDA Kenny on 11/10/24 15:09 Results Reviewed Results Reviewed: Laboratory Last Values [facility]st Clinic Negative 11/10/24 15:08 [place] [address] Magnetic Resonance Report Signed Patient: Robyn Wilcox MR#: [id number] : 1990 Acct:[id number] Age/Sex: 34 / F ADM Date: 09/30/24 Loc: HO.MRI Attending Dr: Laura Quintanilla CNM Ordering Physician: Laura Quintanilla CNM Date of Service: 09/30/24 Procedure(s): MR pelvis wo/w con Accession Number(s): [id number] cc: Laura Quintanilla CNM~ EXAMINATION: MR PELVIS WITHOUT AND WITH CONTRAST CLINICAL INFORMATION: Ovarian cyst, unspecified site. COMPARISON: Correlated to pelvic ultrasound dated April 26, 2024 suggesting a left ovarian cyst. TECHNIQUE: Multiplanar, multisequence MRI pelvis without and following gadolinium based IV contrast. Total of 10 cc given without reported immediate complications. FINDINGS: Uterus measures 8 x 4 x 4 cm. No focal enhancing lesion. Junctional zone measures 1 mm. Cervix demonstrates no enhancing lesion. Right ovary: 4 x 3 x 3 cm. Scattered follicles. No focal enhancing lesion. Left ovary: 4 x 3.3 cm. There is a 2.7 cm thin capsulated nonenhancing fluid signal characteristic lesion. No free fluid in the cul-de-sac. No gross lymphadenopathy in the pelvis. No bone marrow signal abnormality or enhancing lesions in the included axial skeleton and bony pelvis. MR/MR pelvis wo/w con IMPRESSION: 2.7 cm simple cyst, left ovary. Electronically signed by: Rubin Taylor MD 10/04/2024 09:37 AM EST Dictated By: Rubin Tolentino MD Signed By: <Electronically signed by Rubin Oh MD in OV> 10/04/24 0937 DD/ 1520 TD/TT: 09/30/24 1600 Transmission Worker: Assessment & Plan Assessment & Plan (1) Ovarian cyst, left: Comment: 2.7 cm Code(s): N83.202 - Unspecified ovarian cyst, left side Category: Medical Plan: Discussed ovarian cyst findings with the MRI does not appear complex reports as a simple cyst 2.7 cm. Advised to call if there is any increase in pain or tenderness to the area. Reviewed simple cyst versus complex cyst, most likely will resolve on its own. Total time I personally spent on visit and management today: ?15 minutes. Time spent included review of pertinent office notes in the electronic health record; review of laboratory and imaging results; review of personal family medical history; performing physical exam; discussing diagnosis and plan of care with the patient; documenting the encounter in the EMR. (2) Encounter for removal and reinsertion of Nexplanon: Code(s): Z30.46 - Encounter for surveillance of implantable subdermal contraceptive Category: Medical Plan: See procedure notes. Plan Nexplanon recheck 4-6 weeks. Orders: Orders US pelvic and transvaginal Today N83.202 - Unspecified ovarian cyst, left side, N83.209 - Unspecified ovarian cyst, unspecified side AMB HCG Urine Test Today Z32.02 - Encounter for test, result negative Coding Level of Care Code Est Pt Level 3 (49024) Procedure Only Diagnoses Ovarian cyst, left N83.202 Encounter for removal and reinsertion of Nexplanon Z30.46 CPT Codes Details - Contraception: 27703 - Insertion and Removal ([id number])
[2024-11-10 14:38] VITALS: BP 112/78; BMI 49.3
--- OUTSIDE RECORDS SUMMARY | 2024-11-10 18:10 | XMS_ITS | Encounter Summary ---
Author Organization [facility] Address [address] [place] [address] Care Team Providers Care Phone Engineer Name Role Phone Unavailable Primary Care Provider Unavailabl e Encounter Details Date Type Department Care Team (Late st Contact Info) Description 02/03/2022 Dental Interim Note [facility] [address] [place] [address] Ryanne Weiss DDS [address] [place] [address] Social History Tobacco Use Types Packs/Day Years [...] Description 12/02/2024 11:00 AM EDT Office Visit [facility] [address] [place] [address] Leeann Capps [address] [place], [place] [phone] documented as of this encounter Procedures Procedure [...]
--- OUTSIDE RECORDS SUMMARY | 2024-11-10 18:10 | XMS_ITS | Continuity of Care Document ---
Author Organization [facility] Address [address] [place] [address]- Care Team Providers Care Quilt Stuffer Name Role Phone Thor Pablo MD, Dari Primary Care Physician [place] [facility] [place] Date(s): 06/29/24 - 10/21/[address] [address] Attending Physician: Mike Montgomery MD Admitting Physician: Mike Montgomery MD Encounter Type: Pre-OutPatient One Time Allergies, Adverse Reactions, Alerts Substance Criticality Severity Reaction Reaction Severity Status amoxicillin Active Naprosyn Active Medications cetirizine 10 mg oral tablet 1 tablet = 10 mg, By Mouth, Daily, # 90 tablet, 3 Refills, Maintenance, 09/30/24 4:51:00 PM EST, Tablet, [id number], Partial fill upon patient request if the prescription is for a schedule II opioid drug., 164, cm, 05/18/24 15:02:00 EDT, Height Start Date: 09/30/24 Status: Ordered Quantity: 90.0 Unit: tablet Repeat number: 4 escitalopram 20 mg oral tablet 1 tablet [...] HOUR BEFORE BREAKFAST ON EMPTY STOMACH, # 30 capsule, 0 Refills, 09/30/24 4:53:00 PM EST, [facility]pharm[facility] #[id number], 164, cm, 05/18/24 15:02:00 EDT, Height Start Date: 09/30/24 Status: Ordered Quantity: 30.0 Unit: capsule Repeat number: 1 Reguloid 400 mg oral capsule 2 capsule, By Mouth, 2 times a day, PRN NEEDED FOR CONSTIPATION, # 160 capsule, 0 Refills, Maintenance, 10/16/24 6:46:00 PM EST, [id number], 164, cm, 05/18/24 15:02:00 EDT, Height Start Date: 10/16/24 Status: Ordered Quantity: 160.0 Unit: capsule Repeat number: 1 Ventolin HFA [...] Team Personnel Name: Dari Miller MD Position: S Resident Member Role: PCP Address: [address] [place] [address]- Telecom: Name: Gabriela ROLLE, Brandi Alegria Position: [facility] ED RN W/OE and Tasks Member Role: Primary Care Nurse Name: Joseluis ROLLE, Yamilet Emery Position: [facility] ED RN W/OE and Tasks Member Role: Primary Care Nurse Name: Tony ROLLE, Vic Sanchez Position: [facility] RN Member Role: Primary Care Nurse Name: Imelda ROLLE, Damaris Ambrocio Position: [facility] AMB Nurse Member Role: Primary Care Nurse Care Team Related Persons Name: BARBARA DEL ROSARIO Name: MICHOACANO DEL ROSARIO Insurance Providers Guarantor name: AYAKA AMISHA Health Plan Information #: 1 Payer: [facility] Member Number: [id number] Policy Number: NA Group Number: [id number] Health Plan Information #: 2 Payer: [facility] Member Number: [id number] Policy Number: NA Group Number: NA
--- OUTSIDE RECORDS SUMMARY | 2024-11-10 18:10 | XMS_ITS | Clinical Summary ---
Author Organization [facility] Address [address] [place] [address] Care Team Providers Care Economic Development Specialist Name Role Phone Unavailable Primary Care Provider [...] Description 12/02/2024 11:00 AM EDT Office Visit [facility] [address] [place] [phone] Leeann Capps [address] [place] [address] Health Maintenance Due Date Last Done Comments Dental FMX/Pano 1989 Diabetes Screening 1989 HPV Screening 1989 Hepatitis C Screening 1989 Pap + HPV 1989 Tobacco Screening 1989 HIV Screening 2004 Relationship Safety Screening/Counseling 2004 Imm-DTaP/Tdap/Td (1 - Tdap) 2008 Imm-Hepatitis B (1 of 3 - 19+ 3-dose series) 8 Cervical Cancer Screening 2010 Pap Smear 2010 Ken-CDHDS-69 ( season) 2024 Imm-Influenza (#1) 2024 Alcohol [...] Routine 12/11/2023 1:40 PM EDT Defective dental orthodoxy BITEWINGS - FOUR RADIOGRAPHIC IMAGES Routine 12/11/2023 1:40 PM EDT Defective dental orthodoxy PROPHYLAXIS - ADULT Routine 12/11/2023 1 :40 PM EDT Defective dental orthodoxy PERIODIC ORAL EVALUATION ESTABLISHED PATIENT Routine 12/11/2023 1:40 PM EDT Defective dental orthodoxy from Last 3 Months or Most Recently Relevant to Health Maintenance Insurance [facility]
--- OUTSIDE RECORDS SUMMARY | 2024-11-10 18:11 | XMS_ITS | Continuity of Care Document ---
Author Organization [facility] Address [address] [place] [address]- Care Team Providers Care Catalogue And Special Products Manager Name Role Phone Thor Pablo MD, Dari Primary Care Physician En[place] [facility] [place] Date(s): 09/20/24 - 10/21/[address] [address] Attending Physician: Ayesha Dickinson NP Admitting Physician: Ayesha Dickinson NP Encounter Type: Pre-OutPatient One Time Allergies, Adverse Reactions, Alerts Substance Criticality Severity Reaction Reaction Severity Status amoxicillin Active Naprosyn Active Medications cetirizine 10 mg oral tablet 1 tablet = 10 mg, By Mouth, Daily, # 90 tablet, 3 Refills, Maintenance, 09/30/24 4:51:00 PM EST, Tablet, [id number], Partial fill upon patient request if the [...] capsule, 0 Refills, 09/30/24 4:53:00 PM EST, [facility]/pharm[facility] #[id number], 164, cm, 05/18/24 15:02:00 EDT, Height Start Date: 09/30/24 Status: Ordered Quantity: 30.0 Unit: capsule Repeat number: 1 Reguloid 400 mg oral capsule 2 capsule, By Mouth, 2 times a day, PRN NEEDED FOR CONSTIPATION, # 160 capsule, 0 Refills, Maintenance, 10/16/24 6:46:00 PM EST, [facility], 164, cm, 05/18/24 15:02:00 EDT, Height Start [...] Confirmed Active Genital herpes Confirmed Active H/O [place]-Schlatter disease Confirmed Active Healthy adult Confirmed Active [...] Position: S Resident Member Role: PCP Address: [address] [place] [address]- Telecom: Name: Gabriela ROLLE, Brandi Alegria Position: [facility] ED RN W/OE and Tasks Member Role: Primary Care Nurse Name: Joseluis ROLLE, Yamilet Emery Position: [facility] ED RN W/OE and Tasks Member Role: Primary Care Nurse Name: Tony ROLLE, Vic Sanchez Position: [facility] RN Member Role: Primary Care Nurse Name: Imelda ROLLE, Damaris Ambrocio Position: [facility] AMB Nurse Member Role: Primary Care Nurse Care Team Related Persons Name: BARBARA DEL ROSARIO Name: MICHOACANO DEL ROSARIO Insurance Providers Guarantor name: AYAKA AMISHA Health Plan Information #: 1 Payer: [facility] Member Number: [id number] Policy Number: NA Group Number: [id number] Health Plan Information #: 2 Payer: [facility] Member Number: [id number] Policy Number: NA Group Number: NA
--- OUTSIDE RECORDS SUMMARY | 2024-11-10 18:11 | XMS_ITS | Continuity of Care Document ---
Author Organization [facility] Address [address] [place] [address]- Care Team Providers Care Crew Leader Name Role Phone Thor Pablo MD, Dari Primary Care Physician Encounter [facility] [place] Date(s): 09/27/24 - 10/27/[address] [address] Encounter Type: Triage Allergies, Adverse Reactions, Alerts Substance Criticality Severity Reaction Reaction Severity Status amoxicillin Active Naprosyn Active Medications cetirizine 10 mg oral tablet 1 tablet = 10 mg, By Mouth, Daily, # 90 tablet, 3 Refills, Maintenance, 09/30/24 4:51:00 PM EST, Tablet, [id number], Partial fill upon patient request if the [...] capsule, 0 Refills, 09/30/24 4:53:00 PM EST, [facility]/pharmacy #[id number], 164, cm, 05/18/24 15:02:00 EDT, Height Start Date: 09/30/24 Status: Ordered Quantity: 30.0 Unit: capsule Repeat number: 1 Reguloid 400 mg oral capsule 2 capsule, By Mouth, 2 times a day, PRN NEEDED FOR CONSTIPATION, # 160 capsule, 0 Refills, Maintenance, 10/16/24 6:46:00 PM EST, [id number], 164, cm, 05/18/24 15:02:00 EDT, Height Start [...] Team Personnel Name: Dari Miller MD Position: [facility] Resident Member Role: PCP Address: [address] [place] [address]- Telecom: Name: Brandi Ochoa RN Position: [facility] ED RN W/OE and Tasks Member Role: Primary Care Nurse Name: Joseluis RN, Yamilet Emery Position: [facility] ED RN W/OE and Tasks Member Role: Primary Care Nurse Name: Tony RN, Vic Sanchez Position: [facility] RN Member Role: Primary Care Nurse Name: Imelda ROLLE, Damaris Ambrocio Position: [facility] AMB Nurse Member Role: Primary Care Nurse Care Team Related Persons Name: BARBARA DEL ROSARIO Name: MICHOACANO DEL ROSARIO Insurance Providers Guarantor name: [facility] Plan Information #: 1 Payer: [facility] Member Number: NA Policy Number: NA Group Number: NA
== END 2024-11-10 15:33 | disposition home or self-care (01) ==
LOC: HO.HWS 14:30
PROVIDERS: PCP Nurse Practitioner Family; Visit Provider Advanced Practice Midwife
DX: N83.202 Unspecified ovarian cyst, left side (principal); Z30.46 Encounter for surveillance of implantable subdermal contraceptive; Z32.02 Encounter for pregnancy test, result negative
CPT/HCPCS: 11983; 99213

== ENCOUNTER → 2024-11-10 14:30 | Outpatient (BNVA) | payer OTHER, SELFPAY | PROVIDERS: PCP Nurse Practitioner Family; Visit Provider Advanced Practice Midwife | DX: Z30.46 Encounter for surveillance of implantable subdermal contraceptive (principal); N83.202 Unspecified ovarian cyst, left side | CPT/HCPCS: 11983; 81025; 99212; J7307 ==

== ENCOUNTER 2025-07-27 10:05 | Outpatient (AMB) | payer OTHER, SELFPAY ==
--- NOTE | 2025-07-27 10:23 | MHC.OFFVIS ---
Vital Signs 07/27/25 10:25 Height 5 ft 5 in Weight 297 lb 9.985 oz BMI 49.5 BP 120/90 H Blood Pressure Location Lt brachial Position Sitting Intake Visit Reasons: Arthralgia/ATC mutual pt Intake Note: Patient presents today for arthralgia Accompanied by: Self / Same As Patient Allergies naproxen Allergy (Unknown, Verified 07/27/25 10:24) stomach upset Mayonnase Allergy (Unknown, Uncoded 12/24/23 10:28) Unknown HPI HPI Arthralgia/ATC mutual pt: Details: In the last month she has been having worsening left knee pain. She is relying on ibuprofen 800 mg every [id number] hours to control her pain, which is taking the edge off. She has been using ibuprofen t.i.d. consistently for a month. Left knee is giving out on her. She is wearing a knee brace at home. [facility] she [facility] but was unable to progress due to uncontrolled pain. She tries to do her stretches at home. Right knee is painful but it is unchanged. 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 She has positive Thessaly testing. She is unable to bear weight on her left knee only. Son's testing is limited due to back pain that is activated upon testing. Negative anterior and posterior drawer sign. No knee effusion. Vital Signs: Last Vital Signs BP 120/90 H 07/27/25 10:25 BMI result Body Mass Index 49.5 Assessment & Plan Assessment & Plan (1) Chronic knee pain: Comment: Left knee pain has worsened compared to right knee. She has clinical findings suggestive of left knee meniscal tear. Pain is uncontrolled despite regular ibuprofen. She is tolerating ibuprofen. Rheumatology history: She has mild osteoarthritis on x-ray from October 2018 but repeat x-ray October 2023 was reported as normal. She has history of chondromalacia and chronic tibial tuberosity tenderness post [place] Schlatter disease. She had physical therapy in September 2024 but was unable to progress. She was discharged with home exercise program. Meloxicam and Celebrex ineffective. Tylenol and naproxen aggravates IBS. Code(s): M25.569 - Pain in unspecified knee; G89.29 - Other chronic pain Category: Medical Plan: I have ordered x-rays to evaluate for bone pathology contributing to her knee pain such as stress fracture MRI left knee without contrast ordered to rule out meniscus tear She will try to reduce ibuprofen to 600 mg q.8 hourly for pain control to reduce burden on kidneys Labs for drug monitoring on chronic NSAID ordered Continue to brace left knee Letter written for patient at her request for her insurance Medical [facility] reviewed. Return to clinic in 3 months Orders: Orders XR Knee Romero 3V Today G89.29 - Other chronic pain, M25.569 - Pain in unspecified knee Alanine Aminotransferase Today Z79.1 - nursing home (current) use of non-steroidal anti-inflammatories (NSAID) Complete Blood Count Auto Diff Today Z79.1 - terminal superintendent (current) use of non-steroidal anti-inflammatories (NSAID) MR knee LT wo con Today G89.29 - Other chronic pain, M25.569 - Pain in unspecified knee Aspartate Amino Transferase Today Z79.1 - nursing home (current) use of non-steroidal anti-inflammatories (NSAID) Creatinine Today Z79.1 - terminal superintendent (current) use of non-steroidal anti-inflammatories (NSAID) Medications: New ibuprofen Take with food 600 mg PO TID PRN 90 tabs 1RF pain Coding Level of Care Code Est Pt Level 4 (82065) Add On Problem Visit Only Diagnoses Chronic knee pain M25.569; G89.29 Time Spent (min) 20
[2025-07-27 10:25] VITALS: BP 120/90; BMI 49.5
== END 2025-07-27 11:17 | disposition home or self-care (01) ==
LOC: HO.RHES 10:06
PROVIDERS: PCP Nurse Practitioner Family; Visit Provider Internal Medicine Rheumatology
DX: M25.569 Pain in unspecified knee (principal); G89.29 Other chronic pain
CPT/HCPCS: 99214

== ENCOUNTER → 2025-07-27 10:05 | Outpatient (BNVA) | payer OTHER, SELFPAY | PROVIDERS: PCP Nurse Practitioner Family; Visit Provider Internal Medicine Rheumatology | DX: G89.29 Other chronic pain (principal); M25.569 Pain in unspecified knee; Z79.1 Long term (current) use of non-steroidal anti-inflammatories (NSAID) | CPT/HCPCS: 99212 ==